=== PATIENT | male | born 1975 | race Two or more races ===

== ENCOUNTER 2017-05-07 10:38 | Emergency (ER) | payer OTHER ==
[~2017-05-07] VITALS: Ht 162.6 cm; Wt 74.8 kg
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
[2017-05-07] MEDS ORDERED: TRAMADOL HCL 50 MG TABLET ONE (11:07)
[2017-05-07 11:12] VITALS: BP 115/72
[2017-05-07] MEDS ORDERED: TRAMADOL HCL 50 MG TABLET PO ONE (11:30)
== END 2017-05-07 11:13 ==
LOC: ER 10:40
DX: S22.31XA Fracture of one rib, right side, initial encounter for closed fracture (principal); F10.129 Alcohol abuse with intoxication, unspecified; H00.015 Hordeolum externum left lower eyelid; F32.9 Major depressive disorder, single episode, unspecified; V43.52XA Car driver injured in collision with other type car in traffic accident, initial encounter; Y93.89 Activity, other specified; Y92.488 Other paved roadways as the place of occurrence of the external cause; Y99.8 Other external cause status
CPT/HCPCS: 99283; A4606; Z7610